=== PATIENT | female | born 1995 | race Caucasian/White ===

== ENCOUNTER 2018-11-12 14:03 | Outpatient (REF) | payer BC, MEDICAID, SELFPAY ==
--- NOTE | 2018-11-12 09:50 | PAPFT_PTH ---
PATIENT: Nicolasa Lorenzo LOC: [facility] U#:[id number] AGE/SX: 23/F ROOM: RE11/12/[address]: DIANA Ojeda : 1995 BED: DIS: 11/12/2018 SPEC #: [id number] RECD: 11/12/18 17:13 STATUS: CHRIS ALLRED #: [id number] LORA: 11/12/18 09:[address]: Jane Costello DEPT: [facility] Cytology RECD BY: Eduin Oliver Tissues: 1 - CX/ENDOCX FOR PAP SMEARS Procedures: PAP THIN PREP/[facility] Screening Comments: [id number] (Chlamydia/GC)
[2018-11-15 13:32] LABS: Chlamydia Result Negative; GC Result Negative; Specimen Description SEE COMMENTS
== END 2018-11-12 14:23 ==
LOC: LBN 14:03
PROVIDERS: PCP Nurse Practitioner Family; Visit Provider Nurse Practitioner Family
DX: Z12.4 Encounter for screening for malignant neoplasm of cervix (principal); Z11.3 Encounter for screening for infections with a predominantly sexual mode of transmission
CPT/HCPCS: 87491; 87591; 88142

== ENCOUNTER 2019-12-20 13:39 | Outpatient (REF) | payer BC, MEDICAID, SELFPAY ==
[2019-12-21 15:23] LABS: Chlamydia Result Negative (Negative); GC Result Negative (Negative)
== END 2019-12-20 13:59 ==
LOC: LBN 13:39
PROVIDERS: PCP Nurse Practitioner Family; Visit Provider Obstetrics & Gynecology
DX: Z11.3 Encounter for screening for infections with a predominantly sexual mode of transmission (principal)
CPT/HCPCS: 87491; 87591; 87480; 87510; 87660

== ENCOUNTER 2020-02-10 13:02 | Outpatient (REF) | payer BC, MEDICAID, SELFPAY | END 2020-02-10 13:22 | LOC: LBN 13:02 | PROVIDERS: PCP Nurse Practitioner Family; Visit Provider Nurse Practitioner Family | DX: R30.0 Dysuria (principal) | CPT/HCPCS: 87077; 87086; 87186 ==

== ENCOUNTER 2020-02-13 13:36 | Outpatient (REF) | payer BC, MEDICAID, SELFPAY ==
[2020-02-16 15:29] LABS: Chlamydia Result Negative (Negative); GC Result Negative (Negative)
== END 2020-02-13 13:56 ==
LOC: LBN 13:36
PROVIDERS: PCP Nurse Practitioner Family; Visit Provider Nurse Practitioner Family
DX: Z11.3 Encounter for screening for infections with a predominantly sexual mode of transmission (principal)
CPT/HCPCS: 87491; 87591

== ENCOUNTER 2020-02-27 21:12 | Outpatient (REF) | payer BC, MEDICAID, SELFPAY ==
[2020-02-27 21:53] LABS: Bilirubin Negative (Negative); Blood Negative (Negative); Clarity Clear (Clear); Glucose Negative (Negative); Ketones Negative (Negative); Leukocyte Esterase Negative (Negative); Nitrite Negative (Negative); Specific Gravity 1.015 (1.005-1.025); Urobilinogen 0.2 EU/dL (Up TO 0.2)
== END 2020-02-27 21:32 ==
LOC: LBN 21:12
PROVIDERS: PCP Nurse Practitioner Family; Visit Provider Nurse Practitioner Family
DX: N30.90 Cystitis, unspecified without hematuria (principal)
CPT/HCPCS: 81003; 87086

== ENCOUNTER 2020-02-29 02:02 | Outpatient (CLI) | payer BC, MEDICAID, SELFPAY ==
--- NOTE | 2020-02-29 07:15 | DI.US_ITS ---
EXAM: US RENAL CLINICAL HISTORY: FREQUENT Recurrent UTI, assess for renal ygbnuA50.0 TECHNIQUE: Ultrasound performed using standard protocol. COMPARISON: US PELVIS TRANSVAG from 04/18/2015 FINDINGS: The kidneys are normal in size and shape. There is no evidence of a renal mass, hydronephrosis, or n ephrolithiasis. Urinary bladder appears normal with pre and postvoid urinary bladder volume measurem ents 431 cc and 0 cc respectively. Ureteral jets were noted bilaterally in the urinary bladder. IMPRESSION: Normal renal ultrasound. DATA REPOSITORY:
== END 2020-02-29 02:22 ==
PROVIDERS: PCP Nurse Practitioner Family; Visit Provider Nurse Practitioner Family
DX: N39.0 Urinary tract infection, site not specified (principal)
CPT/HCPCS: 76770

== ENCOUNTER 2020-11-30 15:56 | Outpatient (REF) | payer BC, MEDICAID, SELFPAY ==
[2020-11-30 20:39] LABS: HCT 40.8 % (36.0-46.0); HGB 14.3 g/dL (11.2-15.7); MCH 31.9 pg (27.0-33.0); MCV 91.1 fL (80-95); MPV 9.8 fL (8.0-11.0); Platelet Count 222 10^3/uL (130-400); RBC 4.48 10^6/uL (3.93-5.22); RDW 11.5 % (11.7-14.6); RDW-SD 38.7 fL; WBC 6.38 10^3/uL (4.4-10.8)
[2020-11-30 20:46] LABS: Bilirubin Negative (Negative); Blood Negative (Negative); Clarity Clear (Clear); Glucose Negative (Negative); Ketones Negative (Negative); Leukocyte Esterase Negative (Negative); Nitrite Negative (Negative); Specific Gravity 1.015 (1.005-1.025); Urobilinogen 0.2 EU/dL (Up TO 0.2)
[2020-11-30 21:01] LABS: ALT 19 U/L (14-59); AST 15 U/L (15-37); Albumin 4.3 g/dL (3.4-5.0); Alkaline Phosphatase 43 U/L (46-116); Anion Gap 9.9 mmol/L (3-11); BUN 9 mg/dL (7-18); Bilirubin, Total 0.8 mg/dL (0.2-1.0); CO2 26.1 mmol/L (21.0-32.0); CREATININE 0.8 mg/dL (0.55-1.02); Calcium 9.2 mg/dL (8.5-10.1); Calculated LDL 87 mg/dL (<100); Chloride 104 mmol/L (98-107); Cholesterol 163 mg/dL (<200); Glucose 90 mg/dL (74-106); HDL Cholesterol 64 mg/dL (40-60); Potassium 3.8 mmol/L (3.5-5.1); Sodium 140 mmol/L (136-145); Total Protein 7.3 g/dL (6.4-8.2); Triglyceride 64 mg/dL (<150)
== END 2020-11-30 15:57 | disposition home or self-care (01) ==
LOC: LBN 15:56
PROVIDERS: PCP Nurse Practitioner Family; Visit Provider Nurse Practitioner Family
DX: N30.80 Other cystitis without hematuria (principal); Z00.00 Encounter for general adult medical examination without abnormal findings; Z87.440 Personal history of urinary (tract) infections
CPT/HCPCS: 80053; 80061; 85027; 81003

== ENCOUNTER 2021-07-11 02:14 | Outpatient (CLI) | payer BC, MEDICAID, SELFPAY ==
--- NOTE | 2021-07-11 06:45 | DI.CT_ITS ---
Exam(s) CT ABDOMEN PELVIS W EXAM: CT ABDOMEN PELVIS W CLINICAL HISTORY: Evaluate ovarian cyst and pelvic fluid,PELVIC PAIN,R10.2,N83.202,. TECHNIQUE: Imaging Protocol: Axial computed tomography images with coronal and sagittal reformatted images were created and reviewed CONTRAST MATERIAL: Intravenous: Omnipaque 350 Contrast volume:100 ml Oral: yes / no COMPARISON: US US PELVIS TRANSVAGINAL from 06/27/2021 US US PELVIS TRANSVAGINAL from 06/27/2021 FINDINGS: ABDOMEN: Lung Bases: Normal where visualized. Liver: Normal density. No measurable mass. Gallbladder and biliary tract: No radiodense calculus or dilation. Pancreas: Normal density, no abnormal calcifications or inflammatory process. Spleen: Normal. Kidneys: Normal size, contour and axis. No radiodense stones or obstructive uropathy. No masses seen. Adrenal glands: No masses seen. Abdominal Aorta: Abdominal portion non-dilated. PELVIS: Bladder: No gross wall thickening. No calculi.No focal mass. Bowel: No obstruction or bowel wall thickening. Appendix normal. Peritoneal cavity: No ascites, collection or mesenteric inflammatory response. Trace of fluid in the cul-de-sac, physiologic. Bones: Within normal limits for age. Reproductive organs: Uterus is retroverted. . No ovarian cyst visible. Lymph nodes: Unremarkable. Impression: Unremarkable CT scan of the abdomen and pelvis. RADIATION DOSE DELIVERED: 644.22mGy.cm Total DLP DATA REPOSITORY: All CT scans at this facility are submitted to the National Radiology Data Registry (NRDR) Dose Index Registry (DIR) with the [employer] ([employer]). RADIATION OPTIMIZATION: All CT scans at this facility use at least one of these dose optimization te chniques: automated exposure control; mA and/or kV adjustment per patient size (includes targeted exa ms where dose is matched to clinical indication); or iterative reconstruction.
[2021-07-11] MEDS: Breeza Beverage 473 ML BTL PO (08:53)
[2021-07-11] MEDS: Omnipaque 350 MG/ML 50 ML BTL IJ (08:54)
[2021-07-11] MEDS: Omnipaque 350 MG/ML 100 ML BTL IJ (08:57)
[2021-07-11 09:00] LABS: CREATININE 0.8 mg/dL (0.55-1.02)
== END 2021-07-11 02:34 ==
PROVIDERS: PCP Nurse Practitioner Family; Visit Provider Obstetrics & Gynecology
DX: R10.2 Pelvic and perineal pain (principal); Z01.812 Encounter for preprocedural laboratory examination; N83.292 Other ovarian cyst, left side; R18.8 Other ascites
CPT/HCPCS: 74177; 82565; J3490; Q9967

== ENCOUNTER 2021-07-15 13:30 | Outpatient (REF) | payer BC, MEDICAID, SELFPAY ==
[2021-07-17 09:52] LABS: COVID-19 RT-PCR UVMMC Result Negative (Negative)
== END 2021-07-15 13:31 | disposition home or self-care (01) ==
LOC: LBN 13:30
PROVIDERS: PCP Nurse Practitioner Family; Visit Provider Family Medicine
DX: J02.9 Acute pharyngitis, unspecified (principal); Z20.822 Contact with and (suspected) exposure to COVID-19
CPT/HCPCS: U0003; 87070

== ENCOUNTER 2024-06-03 22:37 | Outpatient (REF) | payer SELFPAY | END 2024-06-03 22:38 | disposition home or self-care (01) | LOC: LBN 22:37 | PROVIDERS: Visit Provider Physician Assistant | DX: R30.0 Dysuria (principal); R82.89 Other abnormal findings on cytological and histological examination of urine | CPT/HCPCS: 87086 ==

== ENCOUNTER 2024-06-06 12:00 | Outpatient (CLI) | payer SELFPAY ==
[2024-06-06 12:13] LABS: Anion Gap 7.1 mmol/L (3-11); BUN 13 mg/dL (7-18); CO2 28.9 mmol/L (21.0-32.0); CREATININE 0.8 mg/dL (0.55-1.02); Calcium 9.5 mg/dL (8.5-10.1); Chloride 107 mmol/L (98-107); Estimated GFR 102.86 (mL/min/1.73m2); Glucose 105 mg/dL (74-106); Potassium 4.2 mmol/L (3.5-5.1); Sodium 143 mmol/L (136-145)
== END 2024-06-06 12:01 | disposition home or self-care (01) ==
PROVIDERS: Visit Provider Physician Assistant
DX: N39.0 Urinary tract infection, site not specified (principal)
CPT/HCPCS: 36415; 80048

== ENCOUNTER 2024-07-22 21:20 | Outpatient (REF) | payer SELFPAY ==
[2024-07-22 21:24] LABS: Bilirubin Negative (Negative); Blood Negative (Negative); Clarity Clear (Clear); Glucose Negative (Negative); Ketones Negative (Negative); Leukocyte Esterase Negative (Negative); Nitrite Negative (Negative); Urobilinogen 0.2 mg/dL (Up to 0.2)
== END 2024-07-22 21:21 | disposition home or self-care (01) ==
LOC: LBN 21:20
PROVIDERS: Visit Provider Nurse Practitioner Family
DX: R35.0 Frequency of micturition (principal)
CPT/HCPCS: 81003; 87480; 87510; 87660

== ENCOUNTER 2025-03-09 00:51 | Outpatient (CLI) | payer MEDICAID, SELFPAY ==
[2025-03-09 10:40] LABS: Abs Immature Grans 0.02 10^3/uL (0.0-0.06); HCT 36.6 % (36.0-46.0); HGB 12.8 g/dL (11.2-15.7); Immature Grans % 0.3 %; MCH 30.6 pg (27.0-33.0); MCHC 35.0 % (32.0-36.0); MCV 88 fL (80-95); MPV 8.8 fL (8.0-11.0); Platelet Count 209 10^3/uL (130-400); RBC 4.18 10^6/uL (3.93-5.22); RDW 12.3 % (11.7-14.6); RDW-SD 39.3 fL; WBC 7.65 10^3/uL (4.4-10.8)
[2025-03-09 11:22] LABS: ALT 34 U/L (14-59); AST 17 U/L (15-37); Albumin 3.8 g/dL (3.4-5.0); Alkaline Phosphatase 40 U/L (46-116); Anion Gap 9.3 mmol/L (3-11); BUN 10 mg/dL (7-18); Bilirubin, Total 0.6 mg/dL (0.2-1.0); CO2 26.7 mmol/L (21.0-32.0); Calcium 9.3 mg/dL (8.5-10.1); Chloride 103 mmol/L (98-107); Estimated GFR 124.53 (mL/min/1.73m2); Glucose 80 mg/dL (74-106); Potassium 3.6 mmol/L (3.5-5.1); Sodium 139 mmol/L (136-145); Total Protein 7.2 g/dL (6.4-8.2)
[2025-03-09 20:07] LABS: HIV-1/2 Ag & Ab Screen Negative (Negative)
[2025-03-09 20:09] LABS: Hepatitis C Ab w Rflx HCV PCR Negative (Negative)
[2025-03-10 11:54] LABS: Rubella IgG Ab (UVM) Positive (See Note)
[2025-03-12 12:49] LABS: Syphilis IgG w/Reflex Nonreactive (Nonreactive)
== END 2025-03-09 00:52 | disposition home or self-care (01) ==
LOC: LBO 00:56
PROVIDERS: Visit Provider Advanced Practice Midwife
DX: Z34.91 Encounter for supervision of normal pregnancy, unspecified, first trimester (principal); Z3A.11 11 weeks gestation of pregnancy
CPT/HCPCS: 36415; 80053; 86787; 86803; 86850; 86900; 86901; 87340; 87389; 85025; 86762; 86780

== ENCOUNTER 2025-03-09 10:13 | Outpatient (REF) | payer MEDICAID, SELFPAY ==
[2025-03-09 14:21] LABS: Cannabinoids THC Negative (Negative); METHADONE URINE SCREEN Negative (Negative)
[2025-03-09 14:30] LABS: PROTEIN < 6.0 mg/dL
[2025-03-10 11:57] LABS: Fentanyl Scr w/Rfx Confirm Negative ng/mL (<1)
== END 2025-03-09 10:14 | disposition home or self-care (01) ==
LOC: LBN 10:13
PROVIDERS: Visit Provider Advanced Practice Midwife
DX: Z34.91 Encounter for supervision of normal pregnancy, unspecified, first trimester (principal); Z3A.11 11 weeks gestation of pregnancy
CPT/HCPCS: 80307; 80348; 87491; 87591; 82565; 84156; 87086

== ENCOUNTER 2025-04-06 15:01 | Outpatient (REF) | payer MEDICAID, SELFPAY ==
[2025-04-07 11:14] LABS: Chlamydia Result Negative (Negative); GC Result Negative (Negative)
== END 2025-04-06 15:02 | disposition home or self-care (01) ==
LOC: LBN 15:01
PROVIDERS: Visit Provider Advanced Practice Midwife
DX: Z34.91 Encounter for supervision of normal pregnancy, unspecified, first trimester (principal)
CPT/HCPCS: 87491; 87591

== ENCOUNTER 2025-04-14 11:07 | Outpatient (CLI) | payer MEDICAID, SELFPAY ==
[2025-04-14 11:10] LABS: HCT 35.6 % (36.0-46.0); HGB 12.3 g/dL (11.2-15.7); MCH 30.8 pg (27.0-33.0); MCHC 34.6 % (32.0-36.0); MCV 89 fL (80-95); MPV 8.7 fL (8.0-11.0); Platelet Count 195 10^3/uL (130-400); RBC 3.99 10^6/uL (3.93-5.22); RDW 12.5 % (11.7-14.6); RDW-SD 41.0 fL; WBC 7.16 10^3/uL (4.4-10.8)
[2025-04-14 12:36] LABS: ALT 19 U/L (14-59); AST 15 U/L (15-37); Albumin 3.5 g/dL (3.4-5.0); Alkaline Phosphatase 40 U/L (46-116); Anion Gap 6.3 mmol/L (3-11); BUN 10 mg/dL (7-18); Bilirubin, Total 0.5 mg/dL (0.2-1.0); CO2 28.7 mmol/L (21.0-32.0); Calcium 9.1 mg/dL (8.5-10.1); Chloride 104 mmol/L (98-107); Estimated GFR 124.53 (mL/min/1.73m2); Glucose 82 mg/dL (74-106); Potassium 3.9 mmol/L (3.5-5.1); Sodium 139 mmol/L (136-145); Total Protein 7.1 g/dL (6.4-8.2)
== END 2025-04-14 11:08 | disposition home or self-care (01) ==
LOC: LBO 11:08
PROVIDERS: Visit Provider Advanced Practice Midwife
DX: O09.292 Supervision of pregnancy with other poor reproductive or obstetric history, second trimester (principal); Z3A.16 16 weeks gestation of pregnancy
CPT/HCPCS: 36415; 80053; 85027

== ENCOUNTER 2025-04-14 11:08 | Outpatient (CLI) | payer MEDICAID, SELFPAY ==
--- NOTE | 2025-04-14 11:30 | DI.US_ITS ---
Exam(s) US ABDOMEN LIMITED EXAM: US ABDOMEN LIMITED CLINICAL HISTORY: r/o cholelithiasis, appendix, liver enlargement, RUQ pain TECHNIQUE: Ultrasound of the right upper quadrant performed using standard protocol. COMPARISON: CT CT ABDOMEN PELVIS W from 07/11/2021 FINDINGS: LIVER: Normal size. Normalechogenicity. No focal liver lesions are seen.. GALLBLADDER: Gallbladder somewhat contracted. 2 millimeter mobile stone. No evidence of wall thickening. No pericholecystic fluid identified. RAMIREZ'S SIGN: Negative. BILIARY SYSTEM: No intrahepatic or extrahepatic biliary ductal dilation. RIGHT KIDNEY: Duplex collecting system. no evidence of renal calculi. Mild dilatation of the renal pelvis. No suspicious renal mass. No cyst identified. PANCREAS: Normal where visualized. ABDOMINAL AORTA AND IVC: Visualized portions normal caliber. ASCITES: None seen. Single living intrauterine gestation noted. IMPRESSION: Single mobile gallstone. Duplex right collecting system with mild dilatation. DATA REPOSITORY:
== END 2025-04-14 11:28 ==
LOC: DI 11:08
PROVIDERS: Visit Provider Advanced Practice Midwife
DX: O26.892 Other specified pregnancy related conditions, second trimester (principal); R10.11 Right upper quadrant pain; Z3A.16 16 weeks gestation of pregnancy; R93.421 Abnormal radiologic findings on diagnostic imaging of right kidney; K80.80 Other cholelithiasis without obstruction
CPT/HCPCS: 76705

== ENCOUNTER 2025-05-05 11:44 | Outpatient (CLI) | payer MEDICAID, SELFPAY ==
--- NOTE | 2025-05-05 10:15 | DI.US_ITS ---
Exam(s) US LOWER EXTREMITY VENOUS LT EXAM: US LOWER EXTREMITY VENOUS LT CLINICAL HISTORY: r/o DVT M79.662 PAIN LT LOWER LEG Z34.90 . TECHNIQUE: Lower extremity venous ultrasound performed using grayscale, color- flow, and spectral Doppler analysis. COMPARISON: No exams were available for comparison FINDINGS: The common femoral, femoral and popliteal veins demonstrate normal compressibility, augmentation, and color Doppler. The posterior tibial and peroneal veins are patent. No saphenous vein thrombosis or other superficial venous thrombosis is seen. No hematoma or Winn's cyst is seen. IMPRESSION: Negative lower extremity ultrasound. No evidence of DVT. DATA REPOSITORY:
== END 2025-05-05 12:04 ==
LOC: DI 11:47
PROVIDERS: Visit Provider Advanced Practice Midwife
DX: M79.662 Pain in left lower leg (principal); Z34.91 Encounter for supervision of normal pregnancy, unspecified, first trimester
CPT/HCPCS: 93971

== ENCOUNTER 2025-05-10 01:08 | Outpatient (CLI) | payer MEDICAID, SELFPAY ==
--- NOTE | 2025-05-10 12:30 | DI.US_ITS ---
Exam(s) US OB 2-3 TRIMESTER EXAM: US OB 2-3 TRIMESTER CLINICAL HISTORY: anatomy survey,z34.90. TECHNIQUE: Transabdominal obstetrical ultrasound performed. COMPARISON: US US PELVIS RENAL from 06/06/2024 FINDINGS: Number of fetuses: 1 position: CEPHALIC heart rate: 153bpm Placental location: There is a grade 1 posterior placenta. The placental tip is greater than 5 cm from the internal os. No evidence of previa. Amniotic fluid index: Amount of fluid is within normal limits. ANATOMICAL SURVEY: Within normal limits. BIOMETRIC DATA: BPD: 4.57cm, 19weeks 6days HC: 17.33cm, 19weeks 6days AC: 15.47cm, 20weeks 5days FL: 3.28cm, 20weeks 2days Cisterna magna: 4.8mm Cerebellum: 1.93cm Lateral ventricle: 0.6 cm EFW: 350.29g, 0.77lb, 75.5% Composite Age: 20weeks 1day ROSALIA: 09/26/2025 Heart Rate: 153bpm ANATOMICAL SURVEY: Four-chambered heart: Unremarkable. RVOT: Unremarkable. LVOT: Unremarkable. Left-sided stomach: Unremarkable. urinary bladder: Unremarkable. Bilateral kidneys: Unremarkable. Three-vessel cord: Unremarkable. Cord insertion: Unremarkable. Posterior fossa: Unremarkable. ventricles: Unremarkable. nose/lips: Unremarkable. Palate: Unremarkable. spine: Unremarkable. Two arms and two legs: Unremarkable. IMPRESSION: 1. Single live intrauterine gestation as above. 2. Normal anatomic survey. DATA REPOSITORY:
== END 2025-05-10 01:28 ==
LOC: DI 01:08
PROVIDERS: Visit Provider Advanced Practice Midwife
DX: Z34.92 Encounter for supervision of normal pregnancy, unspecified, second trimester (principal); Z3A.20 20 weeks gestation of pregnancy
CPT/HCPCS: 76805

== ENCOUNTER 2025-06-07 09:55 | Outpatient (REF) | payer MEDICAID, SELFPAY ==
[2025-06-07 12:06] LABS: Prot/Crea Ur Ratio 0.24 mg/mg Cr
== END 2025-06-07 09:56 | disposition home or self-care (01) ==
LOC: LBN 09:55
PROVIDERS: Visit Provider Advanced Practice Midwife
DX: Z34.92 Encounter for supervision of normal pregnancy, unspecified, second trimester (principal); O09.292 Supervision of pregnancy with other poor reproductive or obstetric history, second trimester
CPT/HCPCS: 82565; 84156

== ENCOUNTER 2025-07-05 00:50 | Outpatient (CLI) | payer MEDICAID, SELFPAY ==
[2025-07-05 11:17] LABS: HCT 36.0 % (36.0-46.0); HGB 12.8 g/dL (11.2-15.7); MCH 32.8 pg (27.0-33.0); MCHC 35.6 % (32.0-36.0); MCV 92 fL (80-95); MPV 9.0 fL (8.0-11.0); Platelet Count 208 10^3/uL (130-400); RBC 3.90 10^6/uL (3.93-5.22); RDW 12.2 % (11.7-14.6); RDW-SD 40.9 fL; WBC 9.04 10^3/uL (4.4-10.8)
[2025-07-05 11:38] LABS: Glucose,1 Hr (Glucola) 88 mg/dL (80-140)
[2025-07-05 11:41] LABS: ALT 26 U/L (10-49); AST 26 U/L (<34); Albumin 3.9 g/dL (3.2-5.0); Alkaline Phosphatase 72 U/L (46-116); Anion Gap 9.2 mmol/L (3-11); BUN 10 mg/dL (9-23); Bilirubin, Total 0.5 mg/dL (0.2-1.2); CO2 24.8 mmol/L (20.0-31.0); Calcium 8.9 mg/dL (8.3-10.6); Chloride 106 mmol/L (98-107); Glucose 89 mg/dL (74-106); Potassium 3.9 mmol/L (3.5-5.1); Sodium 140 mmol/L (136-145); Total Protein 6.7 g/dL (5.7-8.2)
== END 2025-07-05 00:51 | disposition home or self-care (01) ==
LOC: LBO 00:51
PROVIDERS: Visit Provider Advanced Practice Midwife
DX: Z34.92 Encounter for supervision of normal pregnancy, unspecified, second trimester (principal)
CPT/HCPCS: 36415; 80053; 82950; 85027

== ENCOUNTER 2025-07-05 09:48 | Outpatient (REF) | payer MEDICAID, SELFPAY ==
[2025-07-05 13:55] LABS: Cannabinoids THC Negative (Negative); Fentanyl Scr w/Rflx to Conf, U Negative (Negative); Prot/Crea Ur Ratio 0.25 mg/mg Cr
== END 2025-07-05 09:49 | disposition home or self-care (01) ==
LOC: LBN 09:48
PROVIDERS: Visit Provider Registered Nurse
DX: Z34.92 Encounter for supervision of normal pregnancy, unspecified, second trimester (principal); O09.292 Supervision of pregnancy with other poor reproductive or obstetric history, second trimester
CPT/HCPCS: 80307; 80348; 82565; 84156